=== PATIENT | female | born 1945 | race Caucasian/White ===

== ENCOUNTER 2018-08-02 05:46 | Day surgery (SDC) | payer MEDICARE, OTHER ==
[2018-08-02] MEDS ORDERED: PROPOFOL 20 ML (07:35)
[2018-08-02] MEDS ORDERED: LIDOCAINE 100 MG SYRINGE (07:35)
[2018-08-02] MEDS ORDERED: MIDAZOLAM 1 MG/ML 2 ML INJ (09:00)
[2018-08-02] MEDS ORDERED: FENTAnyl 50 MCG/ML VIAL (09:00)
== END 2018-08-02 14:54 | disposition home or self-care (01) ==
LOC: GIL 05:46
DX: K44.9 Diaphragmatic hernia without obstruction or gangrene (principal); K21.9 Gastro-esophageal reflux disease without esophagitis; E03.9 Hypothyroidism, unspecified; E78.5 Hyperlipidemia, unspecified
CPT/HCPCS: 43239; 88305